=== PATIENT | female | born 1995 | race American Indian/Alaskan Native ===

== ENCOUNTER 2021-06-28 21:30 | Emergency (ER) | payer OTHER ==
[2021-06-28 23:57] LABS: Basophils # (Auto) 0.1 K/mm3 (0.0-0.1); Basophils % (Auto) 1.3 % (0.0-1.8); Eosinophils # (Auto) 0.2 K/mm3 (0.0-0.4); Eosinophils % (Auto) 3.4 % (0.0-4.3); Hematocrit 40.8 % (30.3-42.9); Hemoglobin 13.4 gm/dl (10.1-14.3); Lymphocytes # (Auto) 2.6 K/mm3 (1.2-5.4); Lymphocytes % (Auto) 46.1 % (13.4-35.0); Mean Corpuscular HGB Conc 33 % (30-34); Mean Corpuscular Volume 93 fl (79-97); Monocytes # (Auto) 0.7 K/mm3 (0.0-0.8); Monocytes % (Auto) 12.9 % (0.0-7.3); Platelet Count 185 K/mm3 (140-440); Red Blood Count 4.37 M/mm3 (3.65-5.03)
[2021-06-29 00:10] LABS: Alanine Aminotransferase 13 units/L (7-56); Albumin 4.1 g/dL (3.9-5); BUN/Creatinine Ratio 14; Blood Urea Nitrogen 13 mg/dL (7-17); Calcium 8.7 mg/dL (8.4-10.2); Hemolysis Index 6
[2021-06-29 01:07] LABS: Bilirubin,Urine NEG (Negative); Blood,Urine NEG (Negative); Calcium Oxalate Crystals,Urine 2+; Color,Urine Yellow (Yellow); Mucus,Urine 2+ /HPF; Protein,Urine <15 mg/dL mg/dL (Negative); RBC,Urine < 1.0 /HPF (0.0-6.0)
[2021-06-29] MEDS ORDERED: traMADol 50 MG TAB PO ONE (02:26)
--- NOTE | 2021-06-29 02:37 | Emergency Department Report ---
ED Abdominal Pain HPI - General Chief Complaint: Abdominal Pain Stated Complaint: NAVAL/GROIN PAIN Time Seen by Provider: 06/29/21 02:26 Source: patient Mode of arrival: Ambulatory Limitations: No Limitations - History of Present Illness Initial Comments: Patient 25-year-old female with history of umbilical hernia who presents for lower abdominal pain that radiates from her knee to suprapubic. Patient denies nausea vomiting no fevers no chills. No difficulty with bowel movements. Patient states pain is 4/10. Pain is exacerbated by eating. Last menstrual cycle 2 weeks ago patient denies other exacerbating or relieving factors. Patient denies diarrhea there is mild melena, there is no nausea or vomiting. MD Complaint: abdominal pain Severity scale (0 -10): 3 - Related Data Previous Rx's Medication Instructions Recorded Last Taken Type bisacodyL [Dulcolax suppos] 10 mg SC ONCE PRN #5 supp.rect 06/29/21 Unknown Rx polyethylene glycoL 3350 [Miralax 17 gm PO BID PRN #14 packet 06/29/21 Unknown Rx 3350] Allergies Allergy/AdvReac Type Severity Reaction Status Date / Time No Known Allergies Allergy Verified 06/28/21 22:29 ED Review of Systems ROS: Stated complaint: NAVAL/GROIN PAIN Other details as noted in HPI Constitutional: denies: chills, fever Eyes: denies: eye pain, eye discharge, vision change ENT: denies: ear pain, throat pain Respiratory: denies: cough, shortness of breath, wheezing Cardiovascular: denies: chest pain, palpitations Endocrine: no symptoms reported Gastrointestinal: abdominal pain. denies: nausea, vomiting, diarrhea, constipation, melena, hematochezia Genitourinary: denies: urgency, dysuria, discharge Musculoskeletal: denies: back pain, joint swelling, arthralgia Skin: denies: rash, lesions Neurological: denies: headache, weakness, paresthesias Psychiatric: denies: anxiety, depression Hematological/Lymphatic: denies: easy bleeding, easy bruising ED Past Medical Hx - Medications Home Medications: Home Medications Medication Instructions Recorded Confirmed Last Taken Type bisacodyL [Dulcolax suppos] 10 mg SC ONCE PRN #5 supp.rect 06/29/21 Unknown Rx polyethylene glycoL 3350 [Miralax 17 gm PO BID PRN #14 packet 06/29/21 Unknown Rx 3350] ED Physical Exam - General Limitations: No Limitations General appearance: alert, in no apparent distress - Head Head exam: Present: normocephalic - Eye Eye exam: Present: PERRL, EOMI Pupils: Present: normal accommodation - ENT ENT exam: Present: mucous membranes moist - Neck Neck exam: Present: normal inspection, full ROM. Absent: tenderness - Respiratory Respiratory exam: Present: normal lung sounds bilaterally. Absent: respiratory distress, wheezes, chest wall tenderness - Cardiovascular Cardiovascular Exam: Present: regular rate, normal rhythm, normal heart sounds. Absent: systolic murmur, diastolic murmur, rubs, gallop - GI/Abdominal GI/Abdominal exam: Present: soft, tenderness (Bilateral lower abdomen no hernia noted on exam), normal bowel sounds. Absent: distended, guarding, rebound, rigid, bruit, hernia (No hernia noted on exam bowel sounds are normal) - Rectal Rectal exam: Present: deferred - Extremities Exam Extremities exam: Present: normal inspection, full ROM, normal capillary refill - Back Exam Back exam: Present: normal inspection. Absent: full ROM, CVA tenderness (R), CVA tenderness (L) - Neurological Exam Neurological exam: Present: alert, oriented X3, CN II-XII intact, normal gait - Expanded Neurological Exam Expanded Patient oriented to: Present: person, place, time Best Eye Response ([place]): (4) open spontaneously Best Motor Response ([place]): (6) obeys commands Best Verbal Response ([place]): (5) oriented [place] Total: 15 - Psychiatric Psychiatric exam: Present: normal affect - Skin Skin exam: Present: warm, dry, intact, normal color. Absent: rash ED Course Vital Signs 06/28/21 21:59 Temperature 98.6 F Pulse Rate 67 Respiratory 18 Rate Blood Pressure 99/60 O2 Sat by Pulse 99 Oximetry ED Medical Decision Making - Lab Data Result diagrams: 06/28/21 23:19 06/28/21 23:19 Labs 06/28/21 06/28/21 06/28/21 23:19 23:19 23:19 WBC 5.7 RBC 4.37 Hgb 13.4 Hct 40.8 MCV 93 MCH 31 MCHC 33 RDW 14.0 Plt Count 185 Lymph % (Auto) 46.1 H [place] % (Auto) 12.9 H Eos % (Auto) 3.4 Baso % (Auto) 1.3 Lymph # (Auto) 2.6 [place] # (Auto) 0.7 Eos # (Auto) 0.2 Baso # (Auto) 0.1 Seg Neutrophils % 36.3 L Seg Neutrophils # 2.1 Sodium 139 Potassium 4.4 Chloride 105.0 Carbon Dioxide 23 Anion Gap 15 BUN 13 Creatinine 0.9 Estimated GFR > 60 BUN/Creatinine Ratio 14 Glucose 80 Calcium 8.7 Total Bilirubin 0.20 AST 29 ALT 13 Alkaline Phosphatase 62 Total Protein 6.1 L Albumin 4.1 Albumin/Globulin Ratio 2.1 HCG, Qual Negative Urine Color Urine Turbidity Urine pH Ur Specific [place] Urine Protein Urine Glucose (UA) Urine Ketones Urine Blood Urine Nitrite Urine Bilirubin Urine Urobilinogen Ur Leukocyte Esterase Urine WBC (Auto) Urine RBC (Auto) U Epithel Cells (Auto) Calcium Oxalate Crystal Urine Mucus 06/29/21 00:40 WBC RBC Hgb Hct MCV MCH MCHC RDW Plt Count Lymph % (Auto) [place] % (Auto) Eos % (Auto) Baso % (Auto) Lymph # (Auto) [place] # (Auto) Eos # (Auto) Baso # (Auto) Seg Neutrophils % Seg Neutrophils # Sodium Potassium Chloride Carbon Dioxide Anion Gap BUN Creatinine Estimated GFR BUN/Creatinine Ratio Glucose Calcium Total Bilirubin AST ALT Alkaline Phosphatase Total Protein Albumin Albumin/Globulin Ratio HCG, Qual Urine Color Yellow Urine Turbidity Clear Urine pH 5.0 Ur Specific [place] 1.029 Urine Protein <15 mg/dl Urine Glucose (UA) Neg Urine Ketones Tr Urine Blood Neg Urine Nitrite Neg Urine Bilirubin Neg Urine Urobilinogen 2.0 Ur Leukocyte Esterase Neg Urine WBC (Auto) 1.0 Urine RBC (Auto) < 1.0 U Epithel Cells (Auto) 3.0 Calcium Oxalate Crystal 2+ Urine Mucus 2+ - Radiology Data Radiology results: image reviewed Nonobstructive gas pattern - Medical Decision Making KUB consistent with constipation. Plan treat for same. Patient is passing bowel movements without difficulty however. Plan DC to home, Dulcolax, hydrate as directed. Follow-up with primary care doctor in 2 to 3 days. Follow-up with general surgery for evaluation of umbilical hernia as previously scheduled. Patient verbalized agreement understanding of discharge plan. Patient DC'd home in stable condition at this time. Critical care attestation.: If time is entered above; I have spent that time in minutes in the direct care of this critically ill patient, excluding procedure time. ED Disposition Clinical Impression: Abdominal pain Qualifiers: Abdominal location: generalized Qualified Code(s): R10.84 - Generalized abdominal pain Constipation Qualifiers: Constipation type: unspecified constipation type Qualified Code(s): K59.00 - Constipation, unspecified Disposition: HOME / SELF CARE / HOMELESS Is pt being admited?: No Does the pt Need Aspirin: No Condition: Stable Instructions: Abdominal Pain (ED), Abdominal Pain, Adult, [id number], Constipation, Adult, [id number] Additional Instructions: Take medications as prescribed, hydrate as directed. Follow-up with your doctor in 2 to 3 days. Return to emergency department should symptoms worsen. Prescriptions: bisacodyL [Dulcolax suppos] 10 mg SC ONCE PRN #5 supp.rect PRN Reason: Constipation polyethylene glycoL 3350 [Miralax 3350] 17 gm PO BID PRN #14 packet PRN Reason: Constipation Referrals: ULYSSES GRAJEDA MD [Staff Physician] - 3-5 Days REYNA SANTO DO [Staff Physician] - 3-5 Days Forms: Work/School Release Form(ED) Time of Disposition: 03:34
[2021-06-29 03:42] VITALS: BP 100/60
--- NOTE | 2021-06-29 16:59 | XRay Report ---
ABDOMEN 1 VIEW 06/29/2021 3:51 PM INDICATION / CLINICAL INFORMATION: abd pain. COMPARISON: None available. FINDINGS: TUBES / LINES: None. BOWEL GAS PATTERN: No significant abnormality. FREE AIR / EXTRALUMINAL GAS: None. ADDITIONAL FINDINGS: No significant additional findings. IMPRESSION: 1. No acute findings. Signer Name: Ivelisse Wong MD Signed: 06/29/2021 4:55 PM Workstation Name: [id number]
== END 2021-06-29 03:41 | disposition home or self-care (01) ==
LOC: ED 21:30
DX: R10.30 Lower abdominal pain, unspecified (principal); K59.00 Constipation, unspecified
CPT/HCPCS: 36415; 74018; 80053; 81001; 84703; 85025; 99284